=== PATIENT | female | born 1970 | race Caucasian/White ===

== ENCOUNTER 2020-04-07 14:24 | Outpatient (REF) | payer OTHER, SELFPAY ==
[2020-04-07 15:10] LABS: MANUAL DIFF FLAG NO
[2020-04-07 15:12] LABS: Basophils Percent Auto 0.6 % (0-2); Eosinophils Absolute Auto 0.1 X10*3/uL (0.0-0.4); Eosinophils Percent Auto 2.8 % (0-4); Hematocrit 40.5 % (37-47); Hemoglobin 13.3 g/dl (12.0-16.0); Imm Gran Abs Auto 0.01 X10*3/uL (0.00-0.03); Imm Gran Pct Auto 0.3 % (0.0-0.4); Lymphocytes Absolute Auto 1.8 X10*3/uL (1.2-4.9); Lymphocytes Percent Auto 54.8 % (20-40); Mean Corpuscular HGB Conc 32.8 g/dl (31.0-35.0); Mean Corpuscular Hemoglobin 27.4 pg (27.0-33.0); Mean Corpuscular Volume 83.3 fL (80-98); Mean Platelet Volume 9.2 fL (9.4-12.3); Monocytes Absolute Auto 0.3 X10*3/uL (0.1-1.2); Monocytes Percent Auto 9.3 % (2-11); Neutrophils Percent Auto 32.2 % (45-73); Platelet Count 254 X10*3/uL (160-400); Red Blood Count 4.86 X10*6/uL (4.20-5.50); Red Cell Distribution Width 12.2 % (11.0-16.0); White Blood Count 3.2 X10*3/uL (4.8-10.8)
[2020-04-07 15:47] LABS: Alanine Aminotransferase 22 U/L (0-31); Albumin Level 4.3 g/dL (3.5-5.0); Alkaline Phosphatase 77 U/L (39-117); Anion Gap 10 (12-20); Aspartate Amino Transferase 15 U/L (5-31); Bilirubin Total 0.4 mg/dL (0.0-1.0); Blood Urea Nitrogen 8 mg/dL (9-16); Calcium 9.2 mg/dL (8.4-10.2); Carbon Dioxide 30 mmol/L (22-29); Chloride 103 mmol/L (96-108); Cholesterol 269 mg/dL; Estimated Glomerular Filt Rate > 60; Glucose Random 92 mg/dL (60-115); HDL Cholesterol 62 mg/dL; LDL Cholesterol Calculated 192 mg/dl; Potassium 4.2 mmol/l (3.3-5.1); Sodium 139 mmol/L (135-145); Total Protein 7.7 g/dL (6.5-8.0); Triglycerides 77 mg/dL
[2020-04-07 16:08] LABS: Thyroid Stimulating Hormone 0.67 mIU/mL (0.32-4.0)
== END 2020-04-07 14:25 | disposition home or self-care (01) ==
LOC: HO.LAB 14:24
PROVIDERS: PCP Internal Medicine; Visit Provider Internal Medicine
DX: R05 Cough (principal); R43.8 Other disturbances of smell and taste; Z20.828 Contact with and (suspected) exposure to other viral communicable diseases
CPT/HCPCS: 36415; 80053; 80061; 84443; 85025

== ENCOUNTER 2020-07-24 09:07 | Outpatient (REF) | payer OTHER, SELFPAY ==
[2020-07-24 10:25] LABS: Alanine Aminotransferase 29 U/L (0-31); Albumin Level 4.2 g/dL (3.5-5.0); Alkaline Phosphatase 75 U/L (39-117); Anion Gap 11 (12-20); Aspartate Amino Transferase 17 U/L (5-31); Bilirubin Total 0.2 mg/dL (0.0-1.0); Blood Urea Nitrogen 10 mg/dL (9-16); Calcium 8.9 mg/dL (8.4-10.2); Carbon Dioxide 28 mmol/L (22-29); Chloride 104 mmol/L (96-108); Cholesterol 251 mg/dL; Estimated Glomerular Filt Rate > 60; Glucose Random 97 mg/dL (60-115); HDL Cholesterol 61 mg/dL; LDL Cholesterol Calculated 178 mg/dl; Potassium 4.4 mmol/l (3.3-5.1); Sodium 139 mmol/L (135-145); Total Protein 7.5 g/dL (6.5-8.0); Triglycerides 62 mg/dL
== END 2020-07-24 09:08 | disposition home or self-care (01) ==
LOC: HO.LAB 09:07
PROVIDERS: PCP Internal Medicine; Visit Provider Internal Medicine
DX: E78.2 Mixed hyperlipidemia (principal)
CPT/HCPCS: 36415; 80053; 80061

== ENCOUNTER 2020-11-03 11:22 | Outpatient (REF) | payer OTHER, SELFPAY ==
[2020-11-03 13:09] LABS: Alanine Aminotransferase 20 U/L (0-31); Albumin Level 4.1 g/dL (3.5-5.0); Alkaline Phosphatase 77 U/L (39-117); Anion Gap 13 (12-20); Aspartate Amino Transferase 15 U/L (5-31); Bilirubin Total 0.4 mg/dL (0.0-1.0); Blood Urea Nitrogen 9 mg/dL (9-16); Calcium 9.2 mg/dL (8.4-10.2); Carbon Dioxide 28 mmol/L (22-29); Chloride 105 mmol/L (96-108); Cholesterol 268 mg/dL; Estimated Glomerular Filt Rate > 60; Glucose Fasting 91 mg/dL (60-99); HDL Cholesterol 60 mg/dL; LDL Cholesterol Calculated 194 mg/dl; Potassium 4.6 mmol/L (3.3-5.1); Sodium 141 mmol/L (135-145); Total Protein 7.5 g/dL (6.5-8.0); Triglycerides 74 mg/dL
== END 2020-11-03 11:23 | disposition home or self-care (01) ==
LOC: HO.LAB 11:22
PROVIDERS: PCP Internal Medicine; Visit Provider Internal Medicine
DX: E78.00 Pure hypercholesterolemia, unspecified (principal); G44.209 Tension-type headache, unspecified, not intractable; Z91.14 Patient's other noncompliance with medication regimen
CPT/HCPCS: 36415; 80053; 80061

== ENCOUNTER → 2020-12-25 09:51 | Outpatient (BNVA) | payer OTHER, SELFPAY | PROVIDERS: PCP Internal Medicine; Referring Provider Internal Medicine; Visit Provider Nurse Practitioner Family ==

== ENCOUNTER 2021-02-20 12:43 | Day surgery (SDC) | payer OTHER, SELFPAY ==
[2021-02-13 15:38] VITALS: BMI 27.6
--- NOTE | 2021-02-19 11:00 | HO.ANESPROP2 ---
Documented by User: Kathy Meyer NP 02/19/21 11:01 HPI - Anesthesia Eval Consult details Narrative: 50yo F for ?Colonoscopy [facility] Past Medical History Medical History Elevated cholesterol GERD (gastroesophageal reflux disease) Surgical History Surgical History H/O tubal ligation Social History Social History Patient Tobacco Use Status: Never used Tobacco Use of substances other than those prescribed or required for medical reasons: No Are you DNR?: No Advance Directives: No Advance Directives Information Provided: Yes (does not have a HCP) Advance Directives on File: No Recently lost weight without trying: No Eating poorly because of decreased appetite: No Nutrition Risks: No Nutritional Risk Patient : No Poor oral hygiene: No Meds Allergies Allergy/AdvReac Type Severity Reaction Status Date / Time No Known Allergies Allergy Verified 12/25/20 10:03 Home Medications Medication Instructions Recorded Confirmed Last Taken Type atorvastatin 80 mg tablet 80 mg PO DAILY 12/25/20 02/13/21 Unknown History naproxen 500 mg tablet 500 mg PO BID PRN 12/25/20 02/13/21 Unknown History Exam Exam Date and Time: February 19, 2021 1100 Height,Weight and Vital Signs: Height 5 ft 5 in Weight 75.296 kg Assessment and Plan Assessment Anesthesia Assessment: Chart Reviewed Documented by User: Archie Jimenez MD 02/20/21 14:17 [facility] Past Medical History Medical History Elevated cholesterol GERD (gastroesophageal reflux disease) Family History Family history of problems with anesthesia: No Surgical History Surgical History H/O tubal ligation History of Problems with Anesthesia: No Social History Social History Patient Tobacco Use Status: Never used Tobacco Use of substances other than those prescribed or required for medical reasons: No Are you DNR?: No Advance Directives: No Advance Directives Information Provided: Yes (does not have a HCP) Advance Directives on File: No Recently lost weight without trying: No Eating poorly because of decreased appetite: No Nutrition Risks: No Nutritional Risk Patient : No Poor oral hygiene: No Meds Allergies Allergy/AdvReac Type Severity Reaction Status Date / Time No Known Allergies Allergy Verified 12/25/20 10:03 Home Medications Medication Instructions Recorded Confirmed Last Taken Type atorvastatin 80 mg tablet 80 mg PO DAILY 12/25/20 02/13/21 Unknown History naproxen 500 mg tablet 500 mg PO BID PRN 12/25/20 02/13/21 Unknown History Exam Airway Mallampati Class: II TM Dist: >3cm Neck ROM: Full Loose/Missing/Broken Teeth: No Heart: RRR Assessment and Plan Assessment Anesthesia Assessment: Anesthesia Plan Discussed Final Anesthetic Review Family History of Problems with Anesthesia: No History of Problems with Anesthesia: No NPO: Yes ASA Class: I Final Preanesthetic Review: No Changes in Pt Med Stat, Meds/Allgs Chart Reviewed, Consent Obtained/Reviewed and Anes Risks/Benef Reviewed Patient Risk: Low Procedure Risk: Low Anesthetic Plan Anesthetic Plan: MAC: Disposition: Standard PACU
[2021-02-20 13:10] VITALS: BP 122/56; PULSE 73; RESP 16; TEMP 36.2; O2SAT 99
--- NOTE | 2021-02-20 13:42 | MHC.SHP ---
Pre-Procedural Eval Section A Date of Service: 02/20/21 The patient is an INPATIENT: No The History & Physical has been completed within 30 days and I have reviewed it.: No Section B Chief Complaint: Screening Details of Present Illness: Colon cancer screening Relevant Family History (Specify if Yes): No Relevant Social History: None Present Medications: see Short Stay Collaborative assessment Medical History: No relevant PMH History of Previous Operations: Relevant previous surgery/procedure and date(s) (H/O tubal ligation) Allergies: Allergies Allergy/AdvReac Type Severity Reaction Status Date / Time No Known Allergies Allergy Verified 12/25/20 10:03 Review of Systems Sugical H&P ROS: Negative: Constitution, Cardiovascular, Respiratory and Gastrointestinal Exam Surgical H&P Exam: Normal: Heart, Normal: Lungs, Normal: Extremities and Normal: Abdomen Plan Diagnosis/Plan: Unchanged I have reviewed the history and physical and performed a pertinent physical examination on my patient. No changes have occurred unless specified.
[2021-02-20] MEDS: Lactated Ringers 1,000 ML 100 ML IVCONT (13:49)
--- NOTE | 2021-02-20 14:50 | PM.OP ---
Brief Operative Note Date of Service: 02/20/21 Pre-op diagnosis: Colon cancer screening Post-op diagnosis: other (Colon polyps, diverticulosis) Procedure: COLONOSCOPY TILL CECUM WITH BIOPSY AND SNARE POLYPECTOMY Consent: Indications for the procedure and potential complications of bleeding, perforation, reaction to medications and missed diagnosis were discussed with the patient and informed consent was obtained. Instrument: Olympus PCF H 190 L variable stiffness pediatric colonoscope Monitoring: Vital signs and clinical assessment, intermittent blood pressure monitoring, continuous EKG monitoring, Pulse oximetry and Carbon Dioxide monitoring were done throughout the procedure. Colon withdrawl time was 18 minutes. Procedure: The patient was placed in the left lateral decubitis position and pre-procedure medications were administered. After a digital rectal examination of the ano-rectum, the video colonoscope was inserted into the rectum and advanced through the colon to the cecum. The colonoscope was slowly withdrawn in a retrograde panoramic fashion and the colon mucosa was carefully examined including a retroflexed view of the rectum. Findings and interventions are described below. Procedure Difficulty: Without difficulty Findings: Terminal Ileum: Not evaluated Cecum: Partially evaluated due to fair to poor prep Ascending Colon: A 6-7 mm sessile polyp in proximal AC removed with cold snare and polyp was not retrievedl Transverse Colon: A 4-5 mm sessile polyp removed with the cold biopsy Descending Colon: Normal Sigmoid Colon: Moderate diverticulosis Rectum: Normal Ano-rectum: Normal Colon preparation: Good despite copious irrigation and fair in some areas of the colon due to undigested vegetable matter which could not be suction Impression and Post Procedure Diagnosis: Colonoscopy Findings: Two small polyps removed Moderate diverticulosis seen in the sigmoid colon Plan: Await pathology results Patient has an appointment on 03/19/21 in the GI Clinic with Marlyn Acharya FNP-BC . Repeat Colonoscopy interval based on path results - in 3 years if polyps are adenomatous and due to fair prep. Above findings were reviewed with the patient and colon polyps and diverticulosis handouts were given in the discharge area Surgeon: Vish Trimble MD Anesthesia: MAC (Britney Steve CRNA) Was an Secretary To Board Of Commissioners used for this Procedure?: Yes Secretary To Board Of Commissioners: Graciela Matute Estimated blood loss (mL): 0 Pathology: other ( A- TRANSVERSE COLON POLYP) Condition: stable Disposition: PACU
[2021-02-20 15:21] VITALS: BP 98/51; PULSE 83; RESP 12; TEMP 36.2; O2SAT 99
[2021-02-20 15:34] VITALS: BP 135/79; PULSE 83; RESP 18; TEMP 36.4; O2SAT 100
--- NOTE | 2021-02-21 14:13 | P.OP_ITS ---
Operative Note Operative Note Date of Service: 02/20/21 Narrative: Pre-op diagnosis:?Colon cancer screening Post-op diagnosis:?other (Colon polyps, diverticulosis) Procedure:? COLONOSCOPY TILL CECUM WITH BIOPSY AND SNARE POLYPECTOMY Consent: Indications for the procedure and potential complications of bleeding, perforation, reaction to medications and missed diagnosis were discussed with the patient and informed consent was obtained. Instrument: Olympus PCF H 190 L variable stiffness pediatric colonoscope Monitoring: Vital signs and clinical assessment, intermittent blood pressure monitoring, continuous EKG monitoring, Pulse oximetry and Carbon Dioxide monitoring were done throughout the procedure. Colon withdrawl time was 18 minutes. Procedure: The patient was placed in the left lateral decubitis position and pre-procedure medications were administered. After a digital rectal examination of the ano-rectum, the video colonoscope was inserted into the rectum and advanced through the colon to the cecum. The colonoscope was slowly withdrawn in a retrograde panoramic fashion and the colon mucosa was carefully examined including a retroflexed view of the rectum. Findings and interventions are described below. Procedure Difficulty: Without difficulty Findings: Terminal Ileum: Not evaluated Cecum:? Partially evaluated due to fair to poor prep Ascending Colon:? A 6-7 mm sessile polyp in proximal AC removed with cold snare and polyp was not retrievedl Transverse Colon:? A 4-5 mm sessile polyp removed with the cold biopsy Descending Colon:? Normal Sigmoid Colon:? Moderate diverticulosis Rectum:? Normal Ano-rectum:? Normal Colon preparation:? Good despite copious irrigation and fair in some areas of the colon due to undigested vegetable matter which could not be suction Impression and Post Procedure Diagnosis: Colonoscopy Findings: Two small polyps removed Moderate diverticulosis seen in the sigmoid colon Plan: Await pathology results Patient has an appointment on 03/19/21 in the GI Clinic with? Marlyn Acharya FNP-BC . Repeat Colonoscopy interval based on path results - in 3? years if polyps are adenomatous and due to fair prep. Above findings were reviewed with the patient and colon polyps and diverticulosis handouts were given in the discharge area Surgeon:?Vish Trimble MD Anesthesia:?MAC (Britney Steve CRNA) Was an Service Station Equipment Mechanic used for this Procedure?:?Yes Service Station Equipment Mechanic:?Graciela Matute Estimated blood loss (mL):?0 Pathology:?other ( A- TRANSVERSE COLON POLYP) Condition:?stable Disposition:?PACU
== END 2021-02-20 16:25 | disposition home or self-care (01) ==
PROVIDERS: PCP Internal Medicine; Visit Provider Internal Medicine Gastroenterology
PROC: 0DJD8ZZ Inspection of Lower Intestinal Tract, Via Natural or Artificial Opening Endoscopic (ICD-10-PCS; CPT 45378; principal; 2021-02-20 14:10)
DX: Z12.11 Encounter for screening for malignant neoplasm of colon (principal); D12.3 Benign neoplasm of transverse colon; K57.30 Diverticulosis of large intestine without perforation or abscess without bleeding; K63.5 Polyp of colon; K21.9 Gastro-esophageal reflux disease without esophagitis
CPT/HCPCS: 45385; 45380; 88305

== ENCOUNTER → 2021-03-19 09:25 | Outpatient (BNVA) | payer OTHER, SELFPAY | PROVIDERS: Visit Provider Nurse Practitioner Family ==

== ENCOUNTER → 2021-04-27 11:29 | Outpatient (BNVA) | payer OTHER, SELFPAY | PROVIDERS: Visit Provider Nurse Practitioner Family ==

== ENCOUNTER 2021-09-11 11:15 | Outpatient (REF) | payer OTHER, SELFPAY ==
[2021-09-11 12:24] LABS: Cholesterol 266 mg/dL; HDL Cholesterol 61 mg/dL; LDL Cholesterol Calculated 190 mg/dl; Triglycerides 78 mg/dL
== END 2021-09-11 11:16 | disposition home or self-care (01) ==
LOC: HO.LAB 11:15
PROVIDERS: PCP Internal Medicine; Visit Provider Internal Medicine
DX: R12 Heartburn (principal); E78.00 Pure hypercholesterolemia, unspecified; Z91.14 Patient's other noncompliance with medication regimen; Z86.010 Personal history of colon polyps
CPT/HCPCS: 36415; 80061

== ENCOUNTER → 2022-01-31 12:17 | Outpatient (BNVA) | payer OTHER, SELFPAY | PROVIDERS: PCP Internal Medicine; Visit Provider Internal Medicine | DX: S29.012A Strain of muscle and tendon of back wall of thorax, initial encounter (principal); S39.012A Strain of muscle, fascia and tendon of lower back, initial encounter; X50.3XXA Overexertion from repetitive movements, initial encounter | CPT/HCPCS: 99203 ==

== ENCOUNTER → 2022-02-08 11:55 | Outpatient (BNVA) | payer OTHER, SELFPAY | PROVIDERS: PCP Internal Medicine; Visit Provider Physician Assistant Medical | DX: S29.012D Strain of muscle and tendon of back wall of thorax, subsequent encounter (principal); S39.012D Strain of muscle, fascia and tendon of lower back, subsequent encounter; X50.3XXD Overexertion from repetitive movements, subsequent encounter | CPT/HCPCS: 99213 ==

== ENCOUNTER → 2022-02-14 15:15 | Outpatient (BNVA) | payer OTHER, SELFPAY | PROVIDERS: PCP Internal Medicine; Visit Provider Physician Assistant Medical | DX: S29.012D Strain of muscle and tendon of back wall of thorax, subsequent encounter (principal); S39.012D Strain of muscle, fascia and tendon of lower back, subsequent encounter; X50.3XXD Overexertion from repetitive movements, subsequent encounter | CPT/HCPCS: 99213 ==

== ENCOUNTER 2022-06-04 15:40 | Emergency (ER) | payer OTHER, SELFPAY ==
[2022-06-04 19:04] VITALS: BP 166/79; PULSE 74; RESP 16; TEMP 36; O2SAT 99; BMI 28.1
--- NOTE | 2022-06-04 19:10 | ED_ITS ---
HPI - Back Pain/Injury General Chief Complaint: Back Pain/Injury <Ileana Garcia MD - Last Filed: 06/04/22 19:15> Stated Complaint: L lower back pain <Ileana Garcia MD - Last Filed: 06/04/22 19:15> Time Seen by Provider: 06/04/22 20:31 <Ileana Garcia MD - Last Filed: 06/04/22 19:15> Source: patient <LUCILA Peacock - Last Filed: 06/04/22 21:07> Mode of arrival: ambulatory <LUCILA Peacock - Last Filed: 06/04/22 21:07> Limitations: no limitations <LUCILA Peacock - Last Filed: 06/04/22 21:07> History of Present Illness HPI Narrative: This is a 52-year-old female history of chronic left-sided back pain, GERD, tubular adenoma presenting to the emergency department with atraumatic left lower lumbar pain times a few weeks worsening, 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 She tells me pain is worse with movement better at rest and also worse with palpation.? Patient tells me this feels like her typical back pain however not going away.? Denies trauma to the area.? Patient tells me pain intermittently radiates to left lower extremity just above the knee and involves her left buttocks.? No previous back surgeries or history of IV drug abuse.? Patient denies numbness, tingling, chest pain, jamey rtness of breath, fevers, chills, nausea, vomiting, abdominal pain, urinary/bowel incontinence/retention, saddle paresthesias, weakness.? Patient ambulatory into the department without difficulties.? Has never seen a specialist for back pain in the past. <LUCILA Peacock - Last Filed: 06/04/22 21:07> Related Data Home Medications: Home Medications Medication Instructions Recorded Confirmed atorvastatin 80 mg tablet 80 mg PO DAILY 12/25/20 02/13/21 naproxen 500 mg tablet 500 mg PO BID PRN migraine 12/25/20 02/13/21 Previous Rx's Medication Instructions Recorded pantoprazole 40 mg tablet,delayed 40 mg PO DAILY #30 tabs 03/20/21 release cyclobenzaprine 5 mg tablet 5 mg PO BEDTIME PRN muscle spasm 06/04/22 #4 tabs ketorolac 10 mg tablet 10 mg PO Q6H PRN pain 5 days #20 06/04/22 tabs <Ileana Garcia MD - Last Filed: 06/04/22 19:15> Allergies/Adverse Reactions: Allergies Allergy/AdvReac Type Severity Reaction Status Date / Time No Known Allergies Allergy Verified 06/04/22 19:06 <Ileana Garcia MD - Last Filed: 06/04/22 19:15> Review of Systems Review of Systems: Constitutional : No Weight loss, No Fever, No Chills, ENT/Mouth : No Hearing loss, No Ear Pain, No Nasal Congestion, No Sinus Pain, No Hoarseness, No sore throat, No Rhinorrhea, No Swallowing Difficulty Cardiovascular : No Chest Pain, No SOB Respiratory : No Cough, No Dyspnea Gastrointestinal : No Nausea, No Vomiting, No Diarrhea, No abdominal Pain, No Hematochezia, No Melena Genitourinary : No Dysuria, No Urinary Frequency, No Hematuria, No Urinary Incontinence, Musculoskeletal : positive back pain Skin : No Skin Lesions, No rash Neuro : No Weakness, No Numbness, No Paresthesias, no loss of bowel or bladder incontinence, no saddle anesthesia <LUCILA Peacock - Last Filed: 1 08/04/21 21:07> Yes all other systems are reviewed and are negative <LUCILA Peacock - Last Filed: 06/04/22 21:07> PMFSH Past Medical History Attestation statement: The following information was validated with the patient. <LUCILA Peacock - Last Filed: 06/04/22 21:07> Source: old records reviewed and nursing notes reviewed <LUCILA Peacock - Last Filed: 06/04/22 21:07> Medical History: Medical History Elevated cholesterol GERD (gastroesophageal reflux disease) Tubular adenoma <Ileana Garcia MD - Last Filed: 06/04/22 19:15> Surgical History: Surgical History H/O tubal ligation Hx of colonoscopy <Ileana Garcia MD - Last Filed: 06/04/22 19:15> Social History Social History: Social History Patient Tobacco Use Status: Never used Tobacco Advance Directives: No <Ileana Garcia MD - Last Filed: 06/04/22 19:15> Physical Exam Vital Signs: Vital Signs: Last Vital Signs Temp 96.8 F 06/04/22 19:04 Pulse 74 06/04/22 19:04 Resp 16 06/04/22 19:04 BP 166/79 H 06/04/22 19:04 Pulse Ox 99 06/04/22 19:04 O2 Del Method 06/04/22 19:04 BMI result Body Mass Index 28.1 <Ileana Garcia MD - Last Filed: 06/04/22 19:15> Vital Signs: Last Vital Signs Temp 96.8 F 06/04/22 19:04 Pulse 74 06/04/22 19:04 Resp 16 06/04/22 19:04 BP 166/79 H 06/04/22 19:04 Pulse Ox 99 06/04/22 19:04 O2 Del Method 06/04/22 19:04 BMI result Body Mass Index 28.1 vss <LUCILA Peacock - Last Filed: 06/04/22 21:07> Appearance: Alert.? Oriented X3.? No acute distress.? Head:? Normocephalic, atraumatic, no step-offs or deformities Eyes: Pupils equal, round and reactive to light.? Neck: Normal inspection.? Neck supple.? CVS: Normal heart rate and rhythm.? Pulses normal.? Respiratory: No respiratory distress.? Breath sounds normal.? Abdomen: Soft and nontender.? Skin: Skin warm and dry.? Normal skin color.? Normal skin turgor.? Extremities: No lower extremity edema.? No calf ttp.? 5/5 strength to bilateral upper and lower extremities. Normal patellar DTRs b/l. Back:? No midline tenderness, no C-spine tenderness, full range of motion, no CVA tenderness bilaterally. Pain w/ palpation to left lumbar region paraspinous muscles Neuro: Oriented X 3.? No motor deficit.? No sensory deficit. CN 2-12 intact .? Patient ambulating with steady gait normal coordination.? No saddle paresthesia.? <LUCILA Peacock - Last Filed: 06/04/22 21:07> Course Course Course Narrative: 52F with acute on chronic, atraumatic left lower back pain that started 2- 3 days ago and has not been associated with groin numbness, pain down either leg, or fevers/chills, bowel or bladder dysfunction. Pt works as a LOSS PREVENTION LEAD. VITAL SIGNS: Reviewed. GENERAL: Well developed, well nourished, in no acute distress. HEAD: Normocephalic/atraumatic EYES: PERRLA, EOMI LUNGS: Normal breath sounds. No adventitious sounds or accessory muscle use. CARDIOVASCULAR: Regular rate and rhythm without noted murmurs ABDOMEN: Soft, non-tender, non-distended with bowel sounds. BACK: no midline vertebral ttp or step-offs MUSCULOSKELETAL: No tenderness, deformities, or effusions noted on gross inspection. EXTREMITIES: No cyanosis, clubbing or edema. SKIN: Inspection of the skin reveals no rashes NEUROLOGIC: Alert and oriented x 4. Strength and sensation to light touch were grossly intact x 4. <Ileana Garcia MD - Last Filed: 06/04/22 19:15> Reevaluation(s) Reevaluation #1: Patient reports symptomatic improvement with medications given in triage Toradol, Tylenol and Lidoderm patch.? However still some pain, will give her Valium as family members driving her home.? Advised to return with any new or worsening symptoms, educated on worrisome signs and symptoms and when to return.? At this time I feel comfortable discharge home likely diagnosis sciatica, unlikely cauda equina or epidural abscess no signs of cord compression.? At time of discharge patient ambulatory with steady gait, afebrile with stable vitals.? Gave her information for primary [facility] follow-up. <LUCILA Peacock - Last Filed: 06/04/22 21:07> Medications Administered Discontinued Medications Generic Name Dose Route Start Last Admin Trade Name Freq PRN Reason Stop Dose Admin Acetaminophen 975 mg 06/04/22 19:08 06/04/22 19:13 Acetaminophen 325 Mg Tablet PO 06/04/22 19:09 975 mg ONCE ONE Administration Ketorolac Tromethamine 15 mg 06/04/22 19:08 06/04/22 19:13 Ketorolac Tromethamine 15 Mg/Ml Vial IM 06/04/22 19:09 15 mg ONCE ONE Administration Lidocaine 1 patch 06/04/22 19:08 06/04/22 19:13 Lidocaine 4 % Patch Adh..Patch TRANSDERMA 06/04/22 19:09 1 patch ONCE ONE Administration Protocol <Ileana Garcia MD - Last Filed: 06/04/22 19:15> Medications Administered Discontinued Medications Generic Name Dose Route Start Last Admin Trade Name Delfina PRN Reason Stop Dose Admin Acetaminophen 975 mg 06/04/22 19:08 06/04/22 19:13 Acetaminophen 325 Mg Tablet PO 06/04/22 19:09 975 mg ONCE ONE Administration Ketorolac Tromethamine 15 mg 06/04/22 19:08 06/04/22 19:13 Ketorolac Tromethamine 15 Mg/Ml Vial IM 06/04/22 19:09 15 mg ONCE ONE Administration Lidocaine 1 patch 06/04/22 19:08 06/04/22 19:13 Lidocaine 4 % Patch Adh..Patch TRANSDERMA 06/04/22 19:09 1 patch ONCE ONE Administration Protocol <LUCILA Peacock - Last Filed: 06/04/22 21:07> MDM - Back Pain/Injury MDM Narrative Medical decision making narrative: 2050 52 year female presents with acute on chronic back pain to L lumbar region w/ radiation to buttocks and leg at times, no injury X few weeks.? Denies red flag symptoms of back pain. Physical exam pain w/ palpation to left lumbar region paraspinous muscles. No midline tenderness. Likely muscle sprain/strain vs sciatica.Most likley sciatica? Unlikely cauda equina, epidural abscess.? No trauma unlikely fracture/dislocation or traumatic subluxation.? No urinary symptoms, pain is not colicky, unlikely that this is renal colic, kidney stone, pyelo, UTI. Plan at this time medication.? Pain is atraumatic, no need for imaging at this time. <LUCILA Peacock - Last Filed: 06/04/22 21:07> Medical Records Attestation: I reviewed the patient's medical records. <LUCILA Peacock - Last Filed: 06/04/22 21:07> Lab Data Attestation: I reviewed the patient's lab results. <LUCILA Peacock - Last Filed: 06/04/22 21:07> Critical Care Time Critical Care Time Critical Care Time: No <LUCILA Peacock - Last Filed: 06/04/22 21:07> Discharge Plan Discharge Clinical Impression: Chronic left-sided low back pain, Sciatica <Ileana Garcia MD - Last Filed: 06/04/22 19:15> Patient Disposition: Home, Self-Care <Ileana Garcia MD - Last Filed: 06/04/22 19:15> Instructions: Sciatica (ED), Chronic Pain (ED), Acute Low Back Pain (ED) <Ileana Garcia MD - Last Filed: 06/04/22 19:15> Additional Instructions: Take your medications as prescribed. If you were prescribed antibiotics today, it is important that you take your medication to their entirety, do not skip any doses, do not finish them early. Follow-up with your primary care provider this week. Return to the emergency department with new or worsening symptoms. Such as fevers, chills, chest pain, shortness of breath, nausea, vomiting, dizziness, headache, vision changes, lethargy, numbness, tingling, saddle paresthesias In case of emergency call 911 <Ileana Garcia MD - Last Filed: 06/04/22 19:15> Prescriptions: New ketorolac 10 mg tablet 10 mg PO Q6H PRN (Reason: pain) 5 Days Qty: 20 0RF Rx Instructions: 1. Pt rec'd toradol in ER 2. Pls instruct to stop other NSAIDs cyclobenzaprine 5 mg tablet 5 mg PO BEDTIME PRN (Reason: muscle spasm) Qty: 4 0RF No Action pantoprazole 40 mg tablet,delayed release (DR/EC) 40 mg PO DAILY Qty: 30 2RF naproxen 500 mg tablet 500 mg PO BID PRN (Reason: migraine) atorvastatin 80 mg tablet 80 mg PO DAILY <Ileana Garcia MD - Last Filed: 06/04/22 19:15> Referrals: [facility] [Provider Group] Linda Trinh MD [Primary Care Provider] - 2 days <Ileana Garcia MD - Last Filed: 06/04/22 19:15> Stand Alone Forms: Work/School Release <Ileana Garcia MD - Last Filed: 06/04/22 19:15>
[2022-06-04] MEDS: Acetaminophen 325 MG TABLET 975 MG PO (19:13)
[2022-06-04] MEDS: Lidocaine 4 % Patch ADH..PATCH 1 PATCH TRANSDERMA (19:13)
[2022-06-04] MEDS: Ketorolac Tromethamine 15 MG/ML VIAL IM (19:13)
--- NOTE | 2022-06-04 20:50 | ED.BACK ---
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 She tells me pain is worse with movement better at rest and also worse with palpation. Patient tells me this feels like her typical back pain however not going away. Denies trauma to the area. Patient tells me pain intermittently radiates to left lower extremity just above the knee and involves her left buttocks. No previous back surgeries or history of IV drug abuse. Patient denies numbness, tingling, chest pain, shortness of breath, fevers, chills, nausea, vomiting, abdominal pain, urinary/bowel incontinence/retention, saddle paresthesias, weakness. Patient ambulatory into the department without difficulties. Has never seen a specialist for back pain in the past. Related Data Home Medications Medication Instructions Recorded Confirmed atorvastatin 80 mg tablet 80 mg PO DAILY 12/25/20 02/13/21 naproxen 500 mg tablet 500 mg PO BID PRN migraine 12/25/20 02/13/21 Previous Rx's Medication Instructions Recorded pantoprazole 40 mg tablet,delayed 40 mg PO DAILY #30 tabs 03/20/21 release cyclobenzaprine 5 mg tablet 5 mg PO BEDTIME PRN muscle spasm 06/04/22 #4 tabs ketorolac 10 mg tablet 10 mg PO Q6H PRN pain 5 days #20 06/04/22 tabs Allergies Allergy/AdvReac Type Severity Reaction Status Date / Time No Known Allergies Allergy Verified 06/04/22 19:06 Review of Systems Review of Systems: Constitutional : No Weight loss, No Fever, No Chills, ENT/Mouth : No Hearing loss, No Ear Pain, No Nasal Congestion, No Sinus Pain, No Hoarseness, No sore throat, No Rhinorrhea, No Swallowing Difficulty Cardiovascular : No Chest Pain, No SOB Respiratory : No Cough, No Dyspnea Gastrointestinal : No Nausea, No Vomiting, No Diarrhea, No abdominal Pain, No Hematochezia, No Melena Genitourinary : No Dysuria, No Urinary Frequency, No Hematuria, No Urinary Incontinence, Musculoskeletal : positive back pain Skin : No Skin Lesions, No rash Neuro : No Weakness, No Numbness, No Paresthesias, no loss of bowel or bladder incontinence, no saddle anesthesia Yes all other systems are reviewed and are negative [facility] Past Medical History Attestation statement: The following information was validated with the patient. Source: old records reviewed Medical History Elevated cholesterol GERD (gastroesophageal reflux disease) Tubular adenoma Surgical History H/O tubal ligation Hx of colonoscopy Social History Social History Patient Tobacco Use Status: Never used Tobacco Advance Directives: No Physical Exam Vital Signs: Vital Signs: Last Vital Signs Temp 96.8 F 06/04/22 19:04 Pulse 74 06/04/22 19:04 Resp 16 06/04/22 19:04 BP 166/79 H 06/04/22 19:04 Pulse Ox 99 06/04/22 19:04 O2 Del Method 06/04/22 19:04 BMI result Body Mass Index 28.1 VSS Appearance: Alert.? Oriented X3.? No acute distress.? Head: Normocephalic, atraumatic, no step-offs or deformities Eyes: Pupils equal, round and reactive to light.? Neck: Normal inspection.? Neck supple.? CVS: Normal heart rate and rhythm.? Pulses normal.? Respiratory: No respiratory distress.? Breath sounds normal.? Abdomen: Soft and nontender.? Skin: Skin warm and dry.? Normal skin color.? Normal skin turgor.? Extremities: No lower extremity edema.? No calf ttp. 5/5 strength to bilateral upper and lower extremities. Normal patellar DTRs b/l. Back: No midline tenderness, no C-spine tenderness, full range of motion, no CVA tenderness bilaterally. Pain w/ palpation to left lumbar region paraspinous muscles Neuro: Oriented X 3.? No motor deficit.? No sensory deficit. CN 2-12 intact . Patient ambulating with steady gait normal coordination. No saddle paresthesia. Course Reevaluation(s) Reevaluation #1: Patient reports symptomatic improvement with medications given in triage Toradol, Tylenol and Lidoderm patch. However still some pain, will give her Valium as family members driving her home. Advised to return with any new or worsening symptoms, educated on worrisome signs and symptoms and when to return. At this time I feel comfortable discharge home likely diagnosis sciatica, unlikely cauda equina or epidural abscess no signs of cord compression. At time of discharge patient ambulatory with steady gait, afebrile with stable vitals. Gave her information for [facility] follow-up. Time: 21:04 Medications Administered Discontinued Medications Generic Name Dose Route Start Last Admin Trade Name Freq PRN Reason Stop Dose Admin Acetaminophen 975 mg 06/04/22 19:08 06/04/22 19:13 Acetaminophen 325 Mg Tablet PO 06/04/22 19:09 975 mg ONCE ONE Administration Ketorolac Tromethamine 15 mg 06/04/22 19:08 06/04/22 19:13 Ketorolac Tromethamine 15 Mg/Ml Vial IM 06/04/22 19:09 15 mg ONCE ONE Administration Lidocaine 1 patch 06/04/22 19:08 06/04/22 19:13 Lidocaine 4 % Patch Adh..Patch TRANSDERMA 06/04/22 19:09 1 patch ONCE ONE Administration Protocol MDM - Back Pain/Injury MDM Narrative Medical decision making narrative: 2050 52 year female presents with acute on chronic back pain to L lumbar region w/ radiation to buttocks and leg at times, no injury X few weeks. Denies red flag symptoms of back pain. Physical exam pain w/ palpation to left lumbar region paraspinous muscles. No midline tenderness. Likely muscle sprain/strain vs sciatica.Most likley sciatica Unlikely cauda equina, epidural abscess. No trauma unlikely fracture/dislocation or traumatic subluxation. No urinary symptoms, pain is not colicky, unlikely that this is renal colic, kidney stone, pyelo, UTI. Plan at this time medication. Pain is atraumatic, no need for imaging at this time. Medical Records Attestation: I reviewed the patient's medical records. Lab Data Attestation: I reviewed the patient's lab results. Critical Care Time Critical Care Time Critical Care Time: No Discharge Plan Discharge Clinical Impression: Chronic left-sided low back pain, Sciatica Patient Disposition: Home, Self-Care Instructions: Sciatica (ED), Acute Low Back Pain (ED), Chronic Pain (ED) Additional Instructions: Take your medications as prescribed. If you were prescribed antibiotics today, it is important that you take your medication to their entirety, do not skip any doses, do not finish them early. Follow-up with your primary care provider this week. Return to the emergency department with new or worsening symptoms. Such as fevers, chills, chest pain, shortness of breath, nausea, vomiting, dizziness, headache, vision changes, lethargy, numbness, tingling, saddle paresthesias In case of emergency call 911 Prescriptions: New ketorolac 10 mg tablet 10 mg PO Q6H PRN (Reason: pain) 5 Days Qty: 20 0RF Rx Instructions: 1. Pt rec'd toradol in ER 2. Pls instruct to stop other NSAIDs cyclobenzaprine 5 mg tablet 5 mg PO BEDTIME PRN (Reason: muscle spasm) Qty: 4 0RF No Action pantoprazole 40 mg tablet,delayed release (DR/EC) 40 mg PO DAILY Qty: 30 2RF naproxen 500 mg tablet 500 mg PO BID PRN (Reason: migraine) atorvastatin 80 mg tablet 80 mg PO DAILY Referrals: Linda Trinh MD [Primary Care Provider] - 2 days [facility] [Provider Group] Stand Alone Forms: Work/School Release
[2022-06-04] MEDS: diazePAM 2 MG TABLET PO (21:09)
== END 2022-06-04 21:15 | disposition home or self-care (01) ==
PROVIDERS: Emergency Provider Emergency Medicine; PCP Internal Medicine
DX: M54.42 Lumbago with sciatica, left side (principal); Z79.899 Other long term (current) drug therapy
CPT/HCPCS: 96372; 99283; 99284; J1885

== ENCOUNTER 2022-08-12 13:10 | Outpatient (REF) | payer OTHER, SELFPAY ==
[2022-08-12 13:23] LABS: MANUAL DIFF FLAG NO
[2022-08-12 14:19] LABS: Eosinophils Absolute Auto 0.1 X10*3/uL (0.0-0.4); Eosinophils Percent Auto 2.6 % (0-4); Hematocrit 39.3 % (37.0-47.0); Hemoglobin 12.5 g/dl (12.0-16.0); Imm Gran Abs Auto 0.01 X10*3/uL (0.00-0.03); Imm Gran Pct Auto 0.3 % (0.0-0.4); Lymphocytes Percent Auto 51.9 % (20-40); Mean Corpuscular HGB Conc 31.8 g/dl (31.0-35.0); Mean Corpuscular Hemoglobin 26.3 pg (27.0-33.0); Mean Corpuscular Volume 82.7 fL (80.0-98.0); Mean Platelet Volume 9.5 fL (9.4-12.3); Monocytes Absolute Auto 0.4 X10*3/uL (0.1-1.2); Monocytes Percent Auto 10.1 % (2-11); Neutrophils Absolute Auto 1.3 x10*3/uL (2.0-8.3); Neutrophils Percent Auto 34.1 % (45-73); Platelet Count 271 X10*3/uL (160-400); Red Blood Count 4.75 X10*6/uL (4.20-5.50); Red Cell Distribution Width 12.1 % (11.0-16.0); White Blood Count 3.9 X10*3/uL (4.8-10.8)
[2022-08-12 14:58] LABS: Alanine Aminotransferase 20 U/L (0-31); Alkaline Phosphatase 81 U/L (39-117); Anion Gap 13 (12-20); Aspartate Amino Transferase 16 U/L (5-31); Bilirubin Total 0.3 mg/dL (0.0-1.0); Blood Urea Nitrogen 5 mg/dL (9-16); Carbon Dioxide 25 mmol/L (22-29); Chloride 105 mmol/L (96-108); Cholesterol 270 mg/dL; Estimated Glomerular Filt Rate > 60; Glucose Random 88 mg/dL (60-115); HDL Cholesterol 62 mg/dL; LDL Cholesterol Calculated 195 mg/dl; Potassium 4.2 mmol/L (3.3-5.1); Sodium 139 mmol/L (135-145); Thyroid Stimulating Hormone 1.01 uIU/mL (0.32-4.0); Total Protein 7.3 g/dL (6.5-8.0); Triglycerides 69 mg/dL
== END 2022-08-12 13:11 | disposition home or self-care (01) ==
LOC: HO.LAB 13:10
PROVIDERS: PCP Internal Medicine; Visit Provider Internal Medicine
DX: E78.00 Pure hypercholesterolemia, unspecified (principal); R07.89 Other chest pain; R51.9 Headache, unspecified
CPT/HCPCS: 36415; 80053; 80061; 84443; 85025

== ENCOUNTER 2022-11-07 21:40 | Emergency (ER) | payer OTHER, SELFPAY ==
--- NOTE | 2022-11-07 | ECG_ITS ---
Test Reason : CHEST PAIN Blood Pressure : / mmHG Vent. Rate : 072 BPM Atrial Rate : 072 BPM P-R Int : 188 ms QRS Dur : 096 ms QT Int : 408 ms P-R-T Axes : 049 044 032 degrees QTc Int : 446 ms Normal sinus rhythm Normal ECG No previous ECGs available Referred By: Generic ED Physician Electronically Signed By:SHAHZAD CROCKER MD
--- NOTE | ~2022-11-07 | CT_ITS ---
EXAMINATION: CT CERVICAL SPINE WITHOUT CONTRAST CLINICAL INFORMATION: Left arm paresthesias, question etiology COMPARISON: None available. TECHNIQUE: Multidetector helical imaging was performed through the cervical spine. Coronal and sagittal reformatted images were created. This CT examination was performed using dose optimization techniques as appropriate, variously including the following: *Automated exposure control *Adjustment of mA and/or kV according to patient size (this includes techniques or standardized protocols for targeted exams where dose is matched to indication/reason for exam; i.e. extremities or head) *Use of iterative reconstruction technique DLP: 416 mGy-cm FINDINGS: There is anatomic alignment of the vertebral bodies and posterior elements. Vertebral body heights are maintained. There is disc space narrowing and endplate osteophyte formation in the lower cervical spine. No evidence of acute fracture. There is mild left-sided bony foraminal narrowing at C5-C6 and C6-C7. No prevertebral soft tissue swelling. Visualized portions of the lung apices are unremarkable. The thyroid gland is unremarkable. CT/CT cervical spine wo IV con IMPRESSION: No acute findings identified in the cervical spine. Degenerative changes as noted above, with mild left-sided bony foraminal narrowing at C5-C6 and C6-C7.
[2022-11-07 21:52] VITALS: BP 142/75; PULSE 71; RESP 16; TEMP 36.4; O2SAT 96; BMI 28.3
[2022-11-07 22:25] LABS: MANUAL DIFF FLAG NO
[2022-11-07 22:27] LABS: Basophils Percent Auto 0.4 % (0-2); Eosinophils Absolute Auto 0.2 X10*3/uL (0.0-0.4); Eosinophils Percent Auto 3.2 % (0-4); Hematocrit 35.8 % (37.0-47.0); Hemoglobin 11.8 g/dl (12.0-16.0); Imm Gran Abs Auto 0.01 X10*3/uL (0.00-0.03); Imm Gran Pct Auto 0.2 % (0.0-0.4); Lymphocytes Absolute Auto 1.7 X10*3/uL (1.2-4.9); Lymphocytes Percent Auto 35.7 % (20-40); Mean Corpuscular Hemoglobin 26.9 pg (27.0-33.0); Mean Corpuscular Volume 81.5 fL (80.0-98.0); Mean Platelet Volume 9.1 fL (9.4-12.3); Monocytes Absolute Auto 0.5 X10*3/uL (0.1-1.2); Monocytes Percent Auto 9.5 % (2-11); Neutrophils Absolute Auto 2.4 x10*3/uL (2.0-8.3); Platelet Count 228 X10*3/uL (160-400); Red Blood Count 4.39 X10*6/uL (4.20-5.50); Red Cell Distribution Width 12.4 % (11.0-16.0); White Blood Count 4.7 X10*3/uL (4.8-10.8)
[2022-11-07 22:51] LABS: Alanine Aminotransferase 18 U/L (0-31); Albumin Level 3.8 g/dL (3.5-5.0); Alkaline Phosphatase 81 U/L (39-117); Anion Gap 11 (12-20); Aspartate Amino Transferase 15 U/L (5-31); Bilirubin Total 0.2 mg/dL (0.0-1.0); Blood Urea Nitrogen 10 mg/dL (9-16); Calcium 8.7 mg/dL (8.4-10.2); Carbon Dioxide 26 mmol/L (22-29); Chloride 106 mmol/L (96-108); Creatinine Clr Calc Pharmacy 98.2; Estimated Glomerular Filt Rate > 60; Glucose Random 90 mg/dL (60-115); Potassium 3.8 mmol/L (3.3-5.1); Sodium 139 mmol/L (135-145); Total Protein 6.8 g/dL (6.5-8.0)
--- NOTE | 2022-11-08 02:33 | ED.GENADULT ---
HPI - General Adult General Chief complaint: General Medical Stated complaint: left arm numbness and pain,chest pain Time Seen by Provider: 11/08/22 02:31 Source: patient Mode of arrival: ambulatory Limitations: no limitations History of Present Illness HPI narrative: Patient with no significant past medical history notice gradual onset of paresthesia in left arm started about a month ago comes and goes no weakness no headache no neck pain no relation of paresthesia with neck movement no family history of multiple sclerosis or Lyme disease no weakness of the hand no pain Related Data Home Medications Medication Instructions Recorded Confirmed atorvastatin 80 mg tablet 80 mg PO DAILY 12/25/20 02/13/21 naproxen 500 mg tablet 500 mg PO BID PRN migraine 12/25/20 02/13/21 Previous Rx's Medication Instructions Recorded pantoprazole 40 mg tablet,delayed 40 mg PO DAILY #30 tabs 03/20/21 release cyclobenzaprine 5 mg tablet 5 mg PO BEDTIME PRN muscle spasm 06/04/22 #4 tabs ketorolac 10 mg tablet 10 mg PO Q6H PRN pain 5 days #20 06/04/22 tabs Allergies Allergy/AdvReac Type Severity Reaction Status Date / Time No Known Allergies Allergy Verified 11/07/22 21:56 Review of Systems Review of Systems: Yes all other systems are reviewed and are negative [facility] Past Medical History Medical History Elevated cholesterol GERD (gastroesophageal reflux disease) Tubular adenoma Surgical History H/O tubal ligation Hx of colonoscopy Social History Social History Patient Tobacco Use Status: Never used Tobacco Advance Directives: No Advance Directives Information Provided: Yes Physical Exam ED Vital Signs: Vital Signs - 24 hr 11/07/22 21:52 11/08/22 03:13 Temperature 97.5 F 97.6 F Pulse Rate 71 63 Respiratory Rate 16 18 Blood Pressure 142/75 H 139/83 Pulse Oximetry 96 95 Oxygen Delivery Method Room Air Room Air BMI result Body Mass Index 28.3 Appearance: Alert. Oriented X3. No acute distress. Eyes: PERRLA, No Nystagmus ENT: Pharynx normal. Oral Mucosa moist Neck: Normal inspection. Neck supple. No midline tenderness CVS: Normal heart rate and rhythm. Pulses normal. Respiratory: No respiratory distress. Equal air entry bilateral, no wheezing/rales/rhonchi Abdomen: Soft and nontender. Bowel sounds are present, no mass palpable, no CVA tenderness Skin: Skin warm and dry. Normal skin color. Normal skin turgor. Extremities: No lower extremity edema. No calf tenderness Neuro: Oriented X 3. No motor deficit. No sensory deficit.No cerebellar signs , cranial nerves II-XII intact DTR 2+ Medical Decision Making Lab Data 11/07/22 22:21 11/07/22 22:21 Labs: Lab Results 11/07/22 11/07/22 Range/Units 22:21 22:21 WBC 4.7 L (4.8-10.8) X10*3/uL RBC 4.39 (4.20-5.50) X10*6/uL Hgb 11.8 L (12.0-16.0) g/dl Hct 35.8 L (37.0-47.0) % MCV 81.5 (80.0-98.0) fL MCH 26.9 L (27.0-33.0) pg MCHC 33.0 (31.0-35.0) g/dl RDW 12.4 (11.0-16.0) % Plt Count 228 (160-400) X10*3/uL MPV 9.1 L (9.4-12.3) fL Immature Gran % (Auto) 0.2 (0.0-0.4) % Neut % (Auto) 51.0 (45-73) % Lymph % (Auto) 35.7 (20-40) % Island % (Auto) 9.5 (2-11) % Eos % (Auto) 3.2 (0-4) % Baso % (Auto) 0.4 (0-2) % Lymph # (Auto) 1.7 (1.2-4.9) X10*3/uL Island # (Auto) 0.5 (0.1-1.2) X10*3/uL Eos # (Auto) 0.2 (0.0-0.4) X10*3/uL Baso # (Auto) 0.0 (0.0-0.2) X10*3/uL Abs Immat Gran (auto) 0.01 (0.00-0.03) X10*3/uL Absolute Neuts (auto) 2.4 (2.0-8.3) x10*3/uL Absolute Nucleated RBC 0.000 (0.0-0.012) X10*3/uL Nucleated RBC % (auto) 0.0 (0.0-0.2) /100WBC Sodium 139 (135-145) mmol/L Potassium 3.8 (3.3-5.1) mmol/L Chloride 106 (96-108) mmol/L Carbon Dioxide 26 (22-29) mmol/L Anion Gap 11 L (12-20) BUN 10 (9-16) mg/dL Creatinine 0.68 (0.5-1.4) mg/dL Estim Creat Clear Calc 98.2 Estimated GFR > 60 Random Glucose 90 (60-115) mg/dL Calcium 8.7 (8.4-10.2) mg/dL Total Bilirubin 0.2 (0.0-1.0) mg/dL AST 15 (5-31) U/L ALT 18 (0-31) U/L Alkaline Phosphatase 81 (39-117) U/L Total Protein 6.8 (6.5-8.0) g/dL Albumin 3.8 (3.5-5.0) g/dL Discharge Plan Discharge Clinical Impression: Paresthesia of arm Patient Disposition: Home, Self-Care Instructions: Paresthesia (ED) Additional Instructions: Follow with PCP/neurology for further evaluation Prescriptions: No Action pantoprazole 40 mg tablet,delayed release (DR/EC) 40 mg PO DAILY Qty: 30 2RF ketorolac 10 mg tablet 10 mg PO Q6H PRN (Reason: pain) 5 Days Qty: 20 0RF Rx Instructions: 1. Pt rec'd toradol in ER 2. Pls instruct to stop other NSAIDs cyclobenzaprine 5 mg tablet 5 mg PO BEDTIME PRN (Reason: muscle spasm) Qty: 4 0RF naproxen 500 mg tablet 500 mg PO BID PRN (Reason: migraine) atorvastatin 80 mg tablet 80 mg PO DAILY Referrals: Avani Birmingham MD [Physician] - 1 week Stand Alone Forms: Work/School Release Interventions: ED Discharge Assessment Last Done: 11/08/22 05:09 Discharge Date/Time: 11/08/22 05:09
[2022-11-08 03:13] VITALS: BP 139/83; PULSE 63; RESP 18; TEMP 36.4; O2SAT 95
== END 2022-11-08 05:09 | disposition home or self-care (01) ==
PROVIDERS: Emergency Provider Internal Medicine; PCP Internal Medicine
DX: R20.2 Paresthesia of skin (principal); E78.5 Hyperlipidemia, unspecified; Z79.02 Long term (current) use of antithrombotics/antiplatelets; Z79.899 Other long term (current) drug therapy
CPT/HCPCS: 36415; 72125; 80053; 85025; 93005; 99283; 99284

== ENCOUNTER 2023-01-28 15:37 | Outpatient (AMB) | payer OTHER, SELFPAY ==
--- NOTE | 2023-01-28 15:50 | A.OFFVIS_ITS ---
Intake Vital Signs 01/28/23 15:55 Height 5 ft 5 in Weight 171 lb BMI 28.5 BP 131/77 Blood Pressure Location Lt brachial Position Sitting Pulse 76 Intake Visit Reasons: follow up Intake Note: Valentine presents in office as a est.patient for a f/u for GERD PT CC: pt reports having no concerns , colonoscopy r/s pt denies any other GI Issues [employer] Required: No Accompanied by: Self / Same As Patient Allergies No Known Allergies Allergy (Verified 01/28/23 15:54) HPI follow up HPI Details LAST VISIT: GERD (gastroesophageal reflux disease) Patient reports that pantoprazole is helpful. Denies any GI symptoms with that except only when she is eating something that get aggravate her stomach. She reports that yesterday she had a lot of sweets and was feeling little nauseous. Denies dyspepsia, dysphagia or odynophagia. She can continue pantoprazole. I will see her in 3 months to re-evaluate. Patient will call me sooner if she will have any GI concerning she is agreeable to plan of care and verbalizes understanding of instructions. She was given the be to ask questions and all questions answered. ? TODAY'S VISIT Patient is here for follow-up. Patient reports that she no longer is taking pantoprazole every day. Patient is only taking may be couple times a month only when she has acid reflux. Patient denies dyspepsia, dysphagia or odynophagia. Reports that she moves her bowels well, however she states that she does in empty her bowels completely. Patient denies melena, hematochezia, unintentional weight loss or ribbon like stools. Patient is due to go for colorectal screening in February of 2024. Patient denies any other GI concerning symptoms. [facility] Medical History Elevated cholesterol GERD (gastroesophageal reflux disease) Tubular adenoma Surgical History H/O tubal ligation Hx of colonoscopy Social History Patient Tobacco Use Status: Never used Tobacco Review of Systems Const Denies weight gain and Denies weight loss ENT Reports no additional complaints, Denies dysphagia and Denies odynophagia Card Reports no additional complaints Resp Reports no additional complaints GI Denies abdominal pain, Denies belching, Denies melena, Denies bloating, Reports constipation, Denies dysphagia, Denies excessive flatus, Denies dyspepsia, Reports heartburn (occasional), Denies diarrhea, Denies loose stools, Denies nausea, Denies odynophagia and Denies vomiting Reports no additional complaints Musc Reports no additional complaints Neuro Reports no additional complaints Psych Reports no additional complaints Endo Reports no additional complaints Physical Exam Vital Signs: Last Vital Signs Pulse 76 01/28/23 15:55 BP 131/77 01/28/23 15:55 BMI result Body Mass Index 28.5 Const General: healthy appearing, no acute distress and well developed Nutritional Appearance: obese Orientation/consciousness: patient oriented x3 HEENT Head: Yes normal to inspection, Yes normocephalic and Yes atraumatic Face and sinus: Yes normal facial exam Mouth: Normal oral and palatal mucosa present Throat: Yes posterior oropharynx normal, Yes tonsils normal and Yes uvula midline Eyes General: appearance normal, both eyes and all related structures Neck Neck: Yes normal visual inspection, Yes full ROM and Yes trachea midline Thyroid: Thyroid normal Resp Effort & Inspection: normal respiratory effort, able to speak in complete sentences, no tracheal deviation and symmetric chest movement Auscultation: clear to auscultation bilaterally Cardio Rate: regular rate Heart sounds: S1 normal heart sound present and S2 normal heart sound present GI Inspection: Yes normal to inspection and No distended Palpation (GI): Soft to palpation, not firm, nontender and No hepatosplenomegaly present Auscultation: normal bowel sounds General: Yes no CVA tenderness Back/Spine/Pelvis Back: no CVA tenderness Skin General skin exam: elasticity normal, turgor normal and dry skin Neuro General: patient oriented x3 Psych Appearance: grossly normal Mental Status: mental status grossly normal Speech and movement: Normal speech and movement present Affect: normal affect Assessment & Plan Assessment & Plan (1) GERD (gastroesophageal reflux disease): Code(s): K21.9 - Gastro-esophageal reflux disease without esophagitis Qualifiers: Esophagitis presence: esophagitis presence not specified Qualified Code(s): K21.9 - Gastro-esophageal reflux disease without esophagitis Plan: Patient will continue avoiding dietary triggers and late night snacking. Staying upright for minimum 3 hours after meals discussed with patient. (2) Constipation: Code(s): K59.00 - Constipation, unspecified Qualifiers: Constipation type: slow transit constipation Qualified Code(s): K59.01 - Slow transit constipation Plan: Start MiraLax daily. Patient will call our office if she will continue to be constipated. Patient will return in 8 months and we will discuss going for colonoscopy. Patient will be due to go in February of 2024, sooner if clinically necessary. Patient is agreeable to this plan and verbalizes understanding of instructions. She was given the opportunity to ask questions and all questions answered. Thank you for allowing me to participate her care Medications: New polyethylene glycol 3350 (Miralax) 17 grams PO DAILY 510 grams 2RF Coding Level of Care Code Est Pt Level 3 (78355) Diagnoses GERD (gastroesophageal reflux disease) K21.9 Esophagitis presence: esophagitis presence not specified Constipation K59.01 Constipation type: slow transit constipation Time Spent (min) 30 Comment 20 minutes spent with patient and additional 10 minutes spent reviewing her records
[2023-01-28 15:55] VITALS: BP 131/77; PULSE 76; BMI 28.5
== END 2023-01-28 16:24 | disposition home or self-care (01) ==
PROVIDERS: PCP Internal Medicine; Visit Provider Nurse Practitioner Family
DX: K21.9 Gastro-esophageal reflux disease without esophagitis (principal); K59.01 Slow transit constipation
CPT/HCPCS: 99213

== ENCOUNTER → 2023-01-28 15:37 | Outpatient (BNVA) | payer OTHER, SELFPAY | PROVIDERS: PCP Internal Medicine; Visit Provider Nurse Practitioner Family | DX: K21.9 Gastro-esophageal reflux disease without esophagitis (principal); K59.01 Slow transit constipation | CPT/HCPCS: 99212 ==

== ENCOUNTER 2024-07-18 10:45 | Emergency (ER) | payer OTHER, SELFPAY ==
--- NOTE | ~2024-07-18 | CT_ITS ---
CLINICAL HISTORY: right flank pain CT abdomen and pelvis without contrast Comparison: None Findings: No nephrolithiasis or hydronephrosis. No bladder stone. No consolidation at the lung bases. Unremarkable gallbladder. The other solid organs are normal. No bowel wall thickening or dilation. A normal appendix is identified. No aneurysm. Trace calcified atherosclerotic disease. No lymphadenopathy. Mild infiltration of the mesentery with normal-sized lymph nodes. No ascites. No acute fracture. Impression: No urinary tract stone or obstruction. Mesenteric panniculitis. This document has been electronically signed by: Vickie Candelario MD on 07/18/2024 19:21:11
--- NOTE | ~2024-07-18 | XR_ITS ---
CLINICAL HISTORY: R lateral rib pain 2 view chest x-ray Comparison: None Findings: No consolidation or effusion. Heart size is normal. No acute fracture. IMPRESSION: 1. No acute findings. This document has been electronically signed by: Curt Jhaveri MD on 07/18/2024 11:25:00
[2024-07-18 11:06] VITALS: BP 143/59; PULSE 81; RESP 18; TEMP 36.1; O2SAT 98; BMI 28.8
--- NOTE | 2024-07-18 11:06 | ED.ABDPAIN ---
HPI - Abdominal Pain General Chief Complaint: General Medical Stated Complaint: R flank pain Time Seen by Provider: 07/18/24 17:54 History of Present Illness ED Provider: Eduar FRENCH narrative: The patient is a 54-year-old female who says that she has had pain in the region of her right mid back radiating to her right abdomen for about 3 days. Symptoms began on Friday morning. He denies any injury. She denies any shortness of breath. The pain is not pleuritic. She has had no significant cough. She has had no urinary discomfort, urgency, or frequency. She has had no nausea, vomiting. She has had no fever, sweats, chills. Related Data Home Medications ?Medication ?Instructions ?Recorded ?Confirmed atorvastatin 80 mg tablet 80 mg PO DAILY 12/25/20 02/13/21 naproxen 500 mg tablet 500 mg PO BID PRN migraine 12/25/20 02/13/21 Previous Rx's ?Medication ?Instructions ?Recorded pantoprazole 40 mg tablet,delayed 40 mg PO DAILY #30 tabs 03/20/21 release cyclobenzaprine 5 mg tablet 5 mg PO BEDTIME PRN muscle spasm 06/04/22 #4 tabs ketorolac 10 mg tablet 10 mg PO Q6H PRN pain 5 days #20 06/04/22 tabs polyethylene glycol 3350 17 17 g PO DAILY #510 grams 01/28/23 gram/dose oral powder (Miralax) ibuprofen 400 mg tablet 400 mg PO Q6H PRN pain #14 tabs 07/18/24 Allergies Allergy/AdvReac Type Severity Reaction Status Date / Time No Known Allergies Allergy Verified 07/18/24 11:08 Review of Systems Review of Systems Yes all other systems are reviewed and are negative PMFSH Past Medical History Medical History Elevated cholesterol GERD (gastroesophageal reflux disease) Tubular adenoma Surgical History H/O tubal ligation Hx of colonoscopy Social History Social History Patient Tobacco Use Status: Never used Tobacco Smoked in Last 30 Days: No Use of substances other than those prescribed or required for medical reasons: No Advance Directives: No Advance Directives Information Provided: No Do you have a plan to hurt others: No Plan Physical Exam ED Vital Signs: Vital Signs - 24 hr 07/18/24 11:06 07/18/24 18:00 Temperature 97.0 F Pulse Rate 81 84 Respiratory Rate 18 18 Blood Pressure 143/59 H 138/62 Pulse Oximetry 98 99 Oxygen Delivery Method Room Air Room Air BMI result Body Mass Index 28.8 Const Other: The patient is a 54-year-old woman who was awake and alert, pleasant cooperative. She does not appear uncomfortable or in distress. She does not appear ill. HENMT Other: Face is symmetrical. Mucous membranes moist. Eyes General: appearance normal, both eyes and all related structures Sclerae: sclerae normal Neck Neck: Yes full ROM Resp Effort & Inspection: normal respiratory effort Auscultation: clear to auscultation bilaterally Cardio Rate: regular rate Rhythm: regular rhythm Heart sounds: S1 normal heart sound present and S2 normal heart sound present GI Other: The abdomen is soft and nontender. No right upper quadrant tenderness. No right lower quadrant tenderness. Back/Spine/Pelvis Other: No CVA percussion tenderness on either side Skin Other: Skin is dry and unremarkable Neuro Other: The patient is awake and alert with a normal mental status. Cranial nerves are grossly intact. She moves her extremities normally and appropriately. Extrem Other: No peripheral edema. No calf swelling or tenderness. Course Course Course Narrative: This is an RME performed by Jeevan Rodriguez CNP: Additional HPI, ROS, PE not included below will be deferred to primary provider. Patient is a 54-year-old female who presents emergency department for evaluation of right lateral rib/ABD/flank pain. Onset 2 days ago. Applied topical heat as well as Tylenol last night without relief. Denies history of similar pain. No trauma or injury. Denies recent URI symptoms, cough, nausea, vomiting, diarrhea, constipation, genitourinary symptoms. Plan: Serum labs, urinalysis, CXR Medical Decision Making Lab Data 07/18/24 11:25 07/18/24 11:25 Labs: Lab Results 07/18/24 07/18/24 Range/Units 11:25 18:35 WBC 3.3 L (4.8-10.8) X10*3/uL RBC 4.87 (4.20-5.50) X10*6/uL Hgb 13.2 (12.0-16.0) g/dl Hct 40.1 (37.0-47.0) % MCV 82.3 (80.0-98.0) fL MCH 27.1 (27.0-33.0) pg MCHC 32.9 (31.0-35.0) g/dl RDW 12.2 (11.0-16.0) % Plt Count 258 (160-400) X10*3/uL MPV 9.2 L (9.4-12.3) fL Immature Gran % (Auto) 0.3 (0.0-0.4) % Neut % (Auto) 31.9 L (45-73) % Lymph % (Auto) 54.3 H (20-40) % [place] % (Auto) 10.1 (2-11) % Eos % (Auto) 2.8 (0-4) % Baso % (Auto) 0.6 (0-2) % Lymph # (Auto) 1.8 (1.2-4.9) X10*3/uL [place] # (Auto) 0.3 (0.1-1.2) X10*3/uL Eos # (Auto) 0.1 (0.0-0.4) X10*3/uL Baso # (Auto) 0.0 (0.0-0.2) X10*3/uL Abs Immat Gran (auto) 0.01 (0.00-0.03) X10*3/uL Absolute Neuts (auto) 1.0 L (2.0-8.3) x10*3/uL Absolute Nucleated RBC 0.000 (0.0-0.012) X10*3/uL Nucleated RBC % (auto) 0.0 (0.0-0.2) /100WBC PT 11.9 (10.9-12.4) SEC INR 1.0 (0.9-1.1) Sodium 140 (135-145) mmol/L Potassium 3.8 (3.3-5.1) mmol/L Chloride 108 (96-108) mmol/L Carbon Dioxide 28 (22-29) mmol/L Anion Gap 8 L (12-20) BUN 8 L (9-16) mg/dL Creatinine 0.67 (0.5-1.4) mg/dL Estim Creat Clear Calc 98.2 Estimated GFR > 60 Random Glucose 80 (60-115) mg/dL Calcium 8.9 (8.4-10.2) mg/dL Total Bilirubin 0.3 (0.0-1.0) mg/dL AST 18 (5-31) U/L ALT 22 (0-31) U/L Alkaline Phosphatase 67 (39-117) U/L Total Protein 7.6 (6.5-8.0) g/dL Albumin 4.0 (3.5-5.0) g/dL Lipase 11 (8-78) U/L Urine Color Yellow Urine Appearance Clear Urine pH 6.0 (5.0-9.0) Ur Specific [place] 1.015 (1.005-1.025) Urine Protein Negative (Neg-Trace) mg/dL Urine Glucose (UA) Negative (Negative) mg/dL Urine Ketones Negative (Negative) mg/dL Urine Blood Negative (Negative) Urine Nitrite Negative (Negative) Ur Leukocyte Esterase Negative (Negative) Influenza Type A (PCR) NEGATIVE (Negative) Influenza Type B (PCR) NEGATIVE (Negative) RSV RNA Qual (PCR) NEGATIVE (Negative) SARS-CoV-2 RNA (RT-PCR) NEGATIVE (Negative) Medications Administered Discontinued Medications Generic Name Dose Route Start Last Admin Trade Name Freq PRN Reason Stop Dose Admin Ketorolac Tromethamine 30 mg 07/18/24 18:12 07/18/24 18:28 Ketorolac Tromethamine 30 Mg/Ml Vial IM 07/18/24 18:13 30 mg ONCE ONE Administration Discharge Plan Discharge Clinical Impression: Acute right flank pain Patient Disposition: Home, Self-Care Additional Instructions: Your testing in the emergency room today is very reassuring. There are no concerning findings on your CT scan, your x-ray, your blood testing, or your urine testing. I suspect that the pain is probably muscular pain. I have sent a prescription for ibuprofen to your pharmacy that you may use every 6 hours as needed for pain. You may also use [id number] acetaminophen (Tylenol). Please make a follow up appointment with your regular doctor to discuss these symptoms further. Return to the emergency room if worse. Prescriptions: New ibuprofen 400 mg tablet 400 mg PO Q6H PRN (Reason: pain) Qty: 14 0RF No Action pantoprazole 40 mg tablet,delayed release (DR/EC) 40 mg PO DAILY Qty: 30 2RF ketorolac 10 mg tablet 10 mg PO Q6H PRN (Reason: pain) 5 Days Qty: 20 0RF Rx Instructions: 1. Pt rec'd toradol in ER 2. Pls instruct to stop other NSAIDs cyclobenzaprine 5 mg tablet 5 mg PO BEDTIME PRN (Reason: muscle spasm) Qty: 4 0RF naproxen 500 mg tablet 500 mg PO BID PRN (Reason: migraine) atorvastatin 80 mg tablet 80 mg PO DAILY polyethylene glycol 3350 [Miralax] 17 gram/dose powder 17 g PO DAILY Qty: 510 2RF Referrals: Linda Trinh MD [Primary Care Provider] - (Right flank pain with negative ER workup) Stand Alone Forms: Work/School Release Print Language: Bruneian
[2024-07-18 11:30] LABS: MANUAL DIFF FLAG NO
[2024-07-18 11:33] LABS: Basophils Percent Auto 0.6 % (0-2); Eosinophils Absolute Auto 0.1 X10*3/uL (0.0-0.4); Eosinophils Percent Auto 2.8 % (0-4); Hematocrit 40.1 % (37.0-47.0); Hemoglobin 13.2 g/dl (12.0-16.0); Imm Gran Abs Auto 0.01 X10*3/uL (0.00-0.03); Imm Gran Pct Auto 0.3 % (0.0-0.4); Lymphocytes Absolute Auto 1.8 X10*3/uL (1.2-4.9); Lymphocytes Percent Auto 54.3 % (20-40); Mean Corpuscular HGB Conc 32.9 g/dl (31.0-35.0); Mean Corpuscular Hemoglobin 27.1 pg (27.0-33.0); Mean Corpuscular Volume 82.3 fL (80.0-98.0); Mean Platelet Volume 9.2 fL (9.4-12.3); Monocytes Absolute Auto 0.3 X10*3/uL (0.1-1.2); Monocytes Percent Auto 10.1 % (2-11); Neutrophils Percent Auto 31.9 % (45-73); Platelet Count 258 X10*3/uL (160-400); Red Blood Count 4.87 X10*6/uL (4.20-5.50); Red Cell Distribution Width 12.2 % (11.0-16.0); White Blood Count 3.3 X10*3/uL (4.8-10.8)
[2024-07-18 11:40] LABS: Prothrombin Time 11.9 SEC (10.9-12.4)
[2024-07-18 11:50] LABS: Alanine Aminotransferase 22 U/L (0-31); Alkaline Phosphatase 67 U/L (39-117); Anion Gap 8 (12-20); Aspartate Amino Transferase 18 U/L (5-31); Bilirubin Total 0.3 mg/dL (0.0-1.0); Blood Urea Nitrogen 8 mg/dL (9-16); Calcium 8.9 mg/dL (8.4-10.2); Carbon Dioxide 28 mmol/L (22-29); Chloride 108 mmol/L (96-108); Creatinine Clr Calc Pharmacy 98.2; Estimated Glomerular Filt Rate > 60; Glucose Random 80 mg/dL (60-115); Lipase 11 U/L (8-78); Potassium 3.8 mmol/L (3.3-5.1); Sodium 140 mmol/L (135-145); Total Protein 7.6 g/dL (6.5-8.0)
[2024-07-18 12:12] LABS: Influenza A PCR NEGATIVE (Negative); Influenza B PCR NEGATIVE (Negative); Resp Syncy Virus RNA Qual PCR NEGATIVE (Negative); SARS COV2 PCR INHOUSE NEGATIVE (Negative)
[2024-07-18 18:00] VITALS: BP 138/62; PULSE 84; RESP 18; O2SAT 99
[2024-07-18] MEDS: Ketorolac Tromethamine 30 MG/ML VIAL IM (18:28)
[2024-07-18 18:46] LABS: Appearance Urine Clear; Color Urine Yellow; Glucose Urine UA Negative (Negative); Leukocyte Esterase Urine Negative (Negative); Nitrite Urine Negative (Negative); Specific Gravity - Urine 1.015 (1.005-1.025); Urine Blood Negative (Negative); Urine Ketones Negative (Negative); Urine Protein Negative (Neg-Trace)
[2024-07-18 20:00] VITALS: BP 130/79; PULSE 86; RESP 18; TEMP 36.8; O2SAT 99
[2024-07-18 20:16] VITALS: BP 130/79; PULSE 86; RESP 18; TEMP 36.8; O2SAT 99
== END 2024-07-18 20:16 | disposition home or self-care (01) ==
PROVIDERS: Nurse Practitioner Family; Emergency Provider Emergency Medicine; PCP Internal Medicine
DX: R10.2 Pelvic and perineal pain (principal); M54.50 Low back pain, unspecified; R07.81 Pleurodynia; Z79.899 Other long term (current) drug therapy; Z03.818 Encounter for observation for suspected exposure to other biological agents ruled out
CPT/HCPCS: 0241U; 71046; 74176; 80053; 81003; 83690; 85025; 85610; 96372; 99284; J1885

== ENCOUNTER → 2024-07-18 11:09 | Outpatient (BNV) | payer OTHER, SELFPAY | PROVIDERS: PCP Internal Medicine; Visit Provider Specialist | DX: R10.9 Unspecified abdominal pain (principal); R07.82 Intercostal pain | CPT/HCPCS: 71046; 74176 ==

== ENCOUNTER 2024-07-29 08:41 | Outpatient (REF) | payer OTHER, SELFPAY ==
[2024-07-29 09:40] LABS: Basophils Percent Auto 0.4 % (0-2); Eosinophils Absolute Auto 0.1 X10*3/uL (0.0-0.4); Eosinophils Percent Auto 2.7 % (0-4); Hematocrit 38.7 % (37.0-47.0); Hemoglobin 12.8 g/dl (12.0-16.0); Lymphocytes Absolute Auto 0.7 X10*3/uL (1.2-4.9); Lymphocytes Percent Auto 26.9 % (20-40); MANUAL DIFF FLAG SCAN; Mean Corpuscular HGB Conc 33.1 g/dl (31.0-35.0); Mean Corpuscular Hemoglobin 27.2 pg (27.0-33.0); Mean Corpuscular Volume 82.2 fL (80.0-98.0); Mean Platelet Volume 9.4 fL (9.4-12.3); Monocytes Absolute Auto 0.5 X10*3/uL (0.1-1.2); Monocytes Percent Auto 17.7 % (2-11); Neutrophils Absolute Auto 1.4 x10*3/uL (2.0-8.3); Neutrophils Percent Auto 52.3 % (45-73); Platelet Count 181 X10*3/uL (160-400); Red Blood Count 4.71 X10*6/uL (4.20-5.50); SCAN SMEAR FLAG 1; White Blood Count 2.6 X10*3/uL (4.8-10.8)
[2024-07-29 10:09] LABS: Alanine Aminotransferase 26 U/L (0-31); Alkaline Phosphatase 73 U/L (39-117); Anion Gap 9 (12-20); Aspartate Amino Transferase 23 U/L (5-31); Bilirubin Total 0.3 mg/dL (0.0-1.0); Blood Urea Nitrogen 8 mg/dL (9-16); Calcium 9.3 mg/dL (8.4-10.2); Carbon Dioxide 27 mmol/L (22-29); Chloride 107 mmol/L (96-108); Cholesterol 222 mg/dL (<200); Estimated Glomerular Filt Rate > 60; Glucose Random 94 mg/dL (60-115); HDL Cholesterol 46 mg/dL (>40); LDL Cholesterol Calculated 162 mg/dL (<100); Potassium 4.2 mmol/L (3.3-5.1); Sodium 139 mmol/L (135-145); Total Protein 8.1 g/dL (6.5-8.0); Triglycerides 74 mg/dL (<150)
[2024-07-29 10:21] LABS: SLIDE REVIEW VERIFIED
[2024-07-30 09:13] LABS: CRP High Sensitivity >20.0 mg/L
== END 2024-07-29 08:42 | disposition home or self-care (01) ==
LOC: HO.LAB 08:41
PROVIDERS: PCP Internal Medicine; Visit Provider Internal Medicine
DX: Z00.00 Encounter for general adult medical examination without abnormal findings (principal); E78.00 Pure hypercholesterolemia, unspecified; Z86.0100 Personal history of colon polyps, unspecified
CPT/HCPCS: 36415; 80053; 80061; 85025; 86141

== ENCOUNTER 2024-11-02 15:27 | Outpatient (AMB) | payer OTHER, SELFPAY ==
[2024-11-02 15:28] VITALS: BP 116/62; PULSE 80; O2SAT 97; BMI 28.8
--- NOTE | 2024-11-02 15:28 | A.OFFVIS_ITS ---
Vital Signs 11/02/24 15:28 Height 5 ft 5 in Weight 173 lb BMI 28.8 BP 116/62 Blood Pressure Location Rt brachial Position Sitting Pulse 80 Pulse Source Pulse Oximeter Pulse Oximetry (%) 97 Oxygen Delivery Method Room Air Intake Visit Reasons: Discuss Colonoscopy Intake Note: ESTABLISHED PATIENT for colo screening. AJ w/ [facility] 2022. Chief Complaint; C.O. intermittent constipation and GERD. Pt reports previously taking pantoprazole for reflux but has not had it for some time due to possible pharmacy/insurance issue? Last colo in 2020 w/ Dr. Trimble. Email Production Consultant Required: No Email Production Consultant Services: Email Production Consultant Offered & Declined Accompanied by: Self / Same As Patient Allergies No Known Allergies Allergy (Verified 11/02/24 15:28) HPI HPI Discuss Colonoscopy: Details: LAST VISIT GERD (gastroesophageal reflux disease) Patient will continue avoiding dietary triggers and late night snacking. Staying upright for minimum 3 hours after meals discussed with patient. Constipation Start MiraLax daily. Patient will call our office if she will continue to be constipated. Patient will return in 8 months and we will discuss going for colonoscopy. Patient will be due to go in February of 2024, sooner if clinically necessary. Patient is agreeable to this plan and verbalizes understanding of instructions. She was given the opportunity to ask questions and all questions answered. ? Thank you for allowing me to participate her care Plan Medications New polyethylene glycol 3350 (Miralax) 17 grams PO DAILY 510 grams 2RF TODAY'S VISIT Patient is here today for follow-up in to discuss going for colonoscopy and possible upper endoscopy. Patient reports that she has epigastric pain and reflux postprandially. Denies dyspepsia, dysphagia odynophagia. Patient admits that she forgot about her script of pantoprazole and never picked up from the pharmacy. Patient also reports that she never picked up MiraLax. Still reports that she is not moving her bowels well. Sometimes no bowel movement for 2-3 days. Denies melena, hematochezia, unintentional weight loss or ribbon like stools. Patient reports that she did well with anesthesia in the past. Currently not on any anticoagulation medication. Denies any cardiac or respiratory symptoms. No history of sleep apnea. No infectious diseases in the past or present. She [facility] Medical History Tubular adenoma Elevated cholesterol GERD (gastroesophageal reflux disease) Surgical History Hx of colonoscopy H/O tubal ligation Social History Patient Tobacco Use Status: Never used Tobacco Review of Systems Const Denies weight gain and Denies weight loss ENT Reports no additional complaints, Denies dysphagia and Denies odynophagia Card Reports no additional complaints Resp Reports no additional complaints GI Denies abdominal pain, Denies belching, Denies melena, Denies bloating, Reports constipation, Denies dysphagia, Denies excessive flatus, Denies dyspepsia, Reports heartburn (occasional), Denies diarrhea, Denies loose stools, Denies nausea, Denies odynophagia and Denies vomiting Reports no additional complaints Musc Reports no additional complaints Neuro Reports no additional complaints Psych Reports no additional complaints Endo Reports no additional complaints Physical Exam Vital Signs: Last Vital Signs Pulse 80 11/02/24 15:28 BP 116/62 11/02/24 15:28 Pulse Ox 97 11/02/24 15:28 Oxygen Delivery Method Room Air 11/02/24 15:28 BMI result Body Mass Index 28.8 Const General: healthy appearing, no acute distress and well developed Nutritional Appearance: obese Orientation/consciousness: patient oriented x3 HEENT Head: Yes normal to inspection, Yes normocephalic and Yes atraumatic Face and sinus: Yes normal facial exam Mouth: Normal oral and palatal mucosa present Throat: Yes posterior oropharynx normal, Yes tonsils normal and Yes uvula midline Eyes General: appearance normal, both eyes and all related structures Neck Neck: Yes normal visual inspection, Yes full ROM and Yes trachea midline Thyroid: Thyroid normal Resp Effort & Inspection: normal respiratory effort, able to speak in complete sentences, no tracheal deviation and symmetric chest movement Auscultation: clear to auscultation bilaterally Cardio Rate: regular rate Heart sounds: S1 normal heart sound present and S2 normal heart sound present GI Inspection: Yes normal to inspection and No distended Palpation (GI): Soft to palpation, not firm, nontender and No hepatosplenomegaly present Auscultation: normal bowel sounds General: Yes no CVA tenderness Back/Spine/Pelvis Back: no CVA tenderness Skin General skin exam: elasticity normal, turgor normal and dry skin Neuro General: patient oriented x3 Psych Appearance: grossly normal Mental Status: mental status grossly normal Speech and movement: Normal speech and movement present Affect: normal affect Assessment & Plan Assessment & Plan (1) GERD (gastroesophageal reflux disease): Code(s): K21.9 - Gastro-esophageal reflux disease without esophagitis Category: Medical Qualifiers: Esophagitis presence: esophagitis presence not specified Qualified Code(s): K21.9 - Gastro-esophageal reflux disease without esophagitis (2) Constipation: Code(s): K59.00 - Constipation, unspecified Qualifiers: Constipation type: slow transit constipation Qualified Code(s): K59.01 - Slow transit constipation (3) Screen for colon cancer: Code(s): Z12.11 - Encounter for screening for malignant neoplasm of colon Plan Patient will start taking pantoprazole every morning half an hour before breakfast. Avoid dietary triggers and with a slightly. Staying upright for minimum 3 hours after meals discussed with patient. Patient will be sent for upper endoscopy to rule out gastritis, esophagitis, duodenitis, H pylori or Blake's. Patient was encouraged to increase fluid intake and inactivity to promote better bowel motility. May take Dulcolax daily. If diarrhea take 1 versus 2 tablets in the evening. What to expect before during and after procedure discussed with patient. Stressed the importance of good bowel prep and clear liquid diet day before procedure. Patient will follow-up in the office after the procedure, sooner on as needed basis. She is agreeable to this plan and verbalizes understanding of instructions. She was given the opportunity to ask questions all questions answered. Thank you for allowing me to participate in her care Medications: New bisacodyl (Dulcolax (bisacodyl)) 10 mg (2 x 5 mg) PO BEDTIME 180 tabs 4RF polyethylene glycol 3350 (Miralax) As directed by gastroenterology department at [facility] 238 grams PO ONCE 238 grams 0RF Z12.11 - Encounter for screening for malignant neoplasm of colon pantoprazole take one tablet half an hour before breakfast 40 mg PO DAILY 30 tabs 2RF K21.9 - Gastro-esophageal reflux disease without esophagitis Coding Level of Care Code Est Pt Level 3 (65410) Diagnoses Gastroesophageal reflux disease, unspecified whether esophagitis present K21.9 Esophagitis presence: esophagitis presence not specified Slow transit constipation K59.01 Constipation type: slow transit constipation Screen for colon cancer Z12.11 Time Spent (min) 30 Comment 20 minutes spent with patient and additional 10 minutes spent reviewing her records
== END 2024-11-02 16:27 | disposition home or self-care (01) ==
PROVIDERS: PCP Internal Medicine; Visit Provider Nurse Practitioner Family
DX: K21.9 Gastro-esophageal reflux disease without esophagitis (principal); K59.01 Slow transit constipation; Z12.11 Encounter for screening for malignant neoplasm of colon
CPT/HCPCS: 99213

== ENCOUNTER → 2024-11-02 15:27 | Outpatient (BNVA) | payer SELFPAY | PROVIDERS: PCP Internal Medicine; Visit Provider Nurse Practitioner Family | DX: K21.9 Gastro-esophageal reflux disease without esophagitis (principal); K59.01 Slow transit constipation | CPT/HCPCS: 99212 ==